=== PATIENT | female | born 1935 | race Caucasian/White ===

== ENCOUNTER 2016-08-31 14:18 | Inpatient (IN) | payer OTHER, MEDICAID ==
[~2016-08-31] VITALS: Ht 154.9 cm; Wt 67.6 kg
--- NOTE | 2016-08-31 14:37 | NUR ---
PT IS IN ROOM #1B. DR MIX EVALUATED THE PT.
[2016-08-31] MEDS ORDERED: CLOPIDOGREL 75 MG TABLET PO ONE (14:45)
[2016-08-31 14:51] LABS: BASOPHILS # (AUTO) 0.1 K/uL (0.0-8.0); EOSINOPHILS # (AUTO) 0.1 K/uL (0.0-0.7); EOSINOPHILS % (AUTO) 1.2 % (0.0-7.0); HEMATOCRIT 43.1 % (37-47); HEMOGLOBIN 14.4 G/DL (12.0-16.0); LYMPHOCYTES # (AUTO) 2.1 K/UL (0.8-4.8); LYMPHOCYTES % (AUTO) 28.3 % (20.5-51.5); MEAN CORPUSCULAR HEMOGLOBIN 28.7 UUG (27.0-31.0); MEAN CORPUSCULAR HGB CONC 33 g/dL (32.0-37.0); MEAN CORPUSCULAR VOLUME 86.1 FL (81.0-99.0); MONOCYTES # (AUTO) 0.5 K/UL (0.1-1.30); MONOCYTES % (AUTO) 7.2 % (0.0-11.0); NEUTROPHILS # (AUTO) 4.7 K/UL (1.8-8.9); NEUTROPHILS % (AUTO) 62.3 % (38.5-71.5); PLATELET COUNT (AUTO) 303 K/UL (150-450); RED BLOOD CELL COUNT(AUTO) 5.01 MIL/UL (4.2-5.4); WHITE BLOOD COUNT (AUTO) 7.5 K/UL (4.0-11.2)
[2016-08-31] MEDS ORDERED: CLOPIDOGREL 75 MG TABLET ONE (14:51)
[2016-08-31 15:02] LABS: CARBON DIOXIDE 24 mmol/L (21-32); CHLORIDE 103 mmol/L (98-107); CREATININE 0.7 mg/dL (0.6-1.3); GLUCOSE 123 mg/dL (74-106); POTASSIUM 4.3 mmol/L (3.5-5.1); UREA NITROGEN, BLOOD 21 mg/dL (7-18)
[2016-08-31 15:15] LABS: ALANINE AMINOTRANSFERASE 23 U/L (14-59); ALKALINE PHOSPHATASE 62 U/L (50-136); ASPARTATE AMINOTRANSFERASE 17 U/L (15-37); BILIRUBIN,DIRECT 0.1 mg/dL (0.0-0.2); BILIRUBIN,TOTAL 0.3 mg/dL (0.2-1.0); TOTAL PROTEIN, SERUM 6.7 g/dL (6.4-8.2)
[2016-08-31] MEDS ORDERED: MORPHINE SULFATE 2 MG/1 ML DISP.SYRIN IV PRN (16:30)
[2016-08-31] MEDS ORDERED: ONDANSETRON 4 MG/2 ML VIAL IV PRN (16:30)
[2016-08-31] MEDS ORDERED: ACETAMINOPHEN 325 MG TABLET PO PRN (16:30)
[2016-08-31 16:53] LABS: *BILIRUBIN,URIN NEGATIVE (NEGATIVE); *BLOOD, URINE 1+ (NEGATIVE); *CLARITY,URINE SLIGHTLY CLOUDY (CLEAR); *COLOR,URINE YELLOW (YELLOW); *KETONES,URINE NEGATIVE (NEGATIVE); *PROTEIN,URINE NEGATIVE (NEGATIVE); *UROBILINOGEN,URINE 0.2 E.U./dl (NORMAL); LEUKOCYTE ESTERASE ,URINE TRACE (NEGATIVE); NITRITE, URINE NEGATIVE (NEGATIVE); UGLUCOSE NEGATIVE (NEGATIVE)
[2016-08-31 17:04] LABS: BACTERIA,URINE NONE SEEN /HPF (NONE SEEN); SQUAMOUS EPITHELIAL CELL,UR FEW /HPF (NONE SEEN)
[2016-08-31] MEDS ORDERED: NITROGLYCERIN 0.4 MG/TAB BOTTLE SL PRN (17:30)
[2016-08-31] MEDS ORDERED: hydrALAZINE HCL 25 MG TABLET PO PRN (17:30)
[2016-08-31] MEDS ORDERED: MECLIZINE HCL 25 MG TABLET PO PRN (17:30)
--- NOTE | 2016-08-31 17:33 | NUR ---
REPORT WAS GIVEN TO APERTURE MASK ETCHER. PT WAS TRANSFERED TO TELEMETRY ROOM #209.
[2016-08-31 17:45] VITALS: BP 145/73
--- NOTE | 2016-08-31 17:45 | NUR ---
REPORT RECEIVED FROM ER. PT. ARRIVED ON FLOOR VIA [facility]. A/OX4. R/A. VSS. TELE APPLIED. PT. DENIES CP OR N/T, SOB. C/O OF DIZZINESS. AMBULATORY. VOIDED. TELE RYTHM SINUS ARRYTHMIA, BBB. PT. RESTING IN BED CURRENTLY. CONTINUE TO MONITOR.
[2016-08-31 18:00] VITALS: BP 155/84
[2016-08-31] MEDS ORDERED: MORPHINE SULFATE 4 MG/1 ML DISP.SYRIN IV PRN (18:00)
[2016-08-31] MEDS ORDERED: CEFTRIAXONE 1 G in IV DEXTROSE 5% 50 ML IV SCH (18:00)
[2016-08-31] MEDS: AMLODIPINE 5 MG TABLET PO SCH (18:41)
--- NOTE | 2016-08-31 19:30 | NUR ---
DAY SHIFT RN STATED THAT PATIENT REFUSED IV CEFTRIAXONE 1G SCHEDULED AT 1800.
[2016-08-31 19:39] VITALS: BP 142/86
--- NOTE | 2016-08-31 20:00 | NUR ---
PT REFUSED IV CEFTRIAXONE 1G SCHEDULED AT 1800. EXPLAINED RISKS/BENEFITS OF TAKING/NOT TAKING ANTIBIOTICS, MANAGER PROGRAM MANAGEMENT ALSO DISCUSSED WITH THE PATIENT BUT PATIENT STILL REFUSED.
[2016-09-01 04:00] VITALS: BP 143/77
--- NOTE | 2016-09-01 06:30 | NUR ---
PT SLEPT INTERMITTENTLY, IN NO ACUTE DISTRESS, NO C/O OF CHEST PAIN, SOB. PT IS ON TELE SINUS ARRYTHMIA, OCCASIONAL PVCs, LBBB. PT C/O OF DIZZINESS, DISCUSSED WITH PT REGARDING SAFETY MEASURES, TO USE CALL LIGHT WHEN ASSISTANCE IS NEEDED, PT VERBALIZED UNDERSTANDING. BED ALARM ON. WILL CONTINUE TO MONITOR.
[2016-09-01 07:00] LABS: BASOPHILS % (AUTO) 0.7 % (0.0-2.0); EOSINOPHILS # (AUTO) 0.2 K/uL (0.0-0.7); EOSINOPHILS % (AUTO) 2.5 % (0.0-7.0); HEMOGLOBIN 13.7 G/DL (12.0-16.0); LYMPHOCYTES # (AUTO) 2.5 K/UL (0.8-4.8); MEAN CORPUSCULAR HGB CONC 33 g/dL (32.0-37.0); MEAN CORPUSCULAR VOLUME 86.8 FL (81.0-99.0); MONOCYTES # (AUTO) 0.5 K/UL (0.1-1.30); MONOCYTES % (AUTO) 7.5 % (0.0-11.0); NEUTROPHILS # (AUTO) 3.1 K/UL (1.8-8.9); NEUTROPHILS % (AUTO) 49.3 % (38.5-71.5); PLATELET COUNT (AUTO) 263 K/UL (150-450); RED BLOOD CELL COUNT(AUTO) 4.72 MIL/UL (4.2-5.4); WHITE BLOOD COUNT (AUTO) 6.3 K/UL (4.0-11.2)
[2016-09-01] MEDS ORDERED: PANTOPRAZOLE SODIUM 40 MG TABLET.DR PO SCH (07:00)
--- NOTE | 2016-09-01 07:10 | NUR ---
RECEIVED REPORT FROM BALLET SOLOIST NURSE, PATIENT WALKING IN HALLWAYS, VERY ANXIOUS, HAS A LOT OF QUESTIONS AND CONCERNS ABOUT BREAKFAST AND DIET BEING GLUTEN FREE, AND LOW FAT PRESCRIPTION BY DOCTOR. PATIENT WAS WALKED BACK TO HER ROOM AND OFFERED A CUP OF TEA, PATIENT AGREED AND CALMED DOWN.
[2016-09-01 07:25] LABS: ALANINE AMINOTRANSFERASE 19 U/L (14-59); ALKALINE PHOSPHATASE 50 U/L (50-136); ASPARTATE AMINOTRANSFERASE 17 U/L (15-37); BILIRUBIN,TOTAL 0.6 mg/dL (0.2-1.0); CARBON DIOXIDE 28 mmol/L (21-32); CHLORIDE 105 mmol/L (98-107); CHOLESTEROL 164 mg/dL (<200); CREATININE 0.8 mg/dL (0.6-1.3); GLUCOSE 100 mg/dL (74-106); HDL CHOLESTEROL 75 mg/dL (40-60); MAGNESIUM 1.7 mg/dL (1.8-2.4); PHOSPHOROUS 3.7 mg/dL (2.5-4.9); POTASSIUM 4.1 mmol/L (3.5-5.1); TOTAL PROTEIN, SERUM 5.9 g/dL (6.4-8.2); TRIGLYCERIDES 76 MG/DL (30-150); UREA NITROGEN, BLOOD 17 mg/dL (7-18)
[2016-09-01 07:33] LABS: THYROID STIMULATING HORMONE 2.844 mIU/mL (0.358-3.740)
[2016-09-01] MEDS ORDERED: FAMO40TA7 PO (08:50)
[2016-09-01] MEDS ORDERED: DIVA125T2 PO (08:50)
[2016-09-01] MEDS ORDERED: URSO300C12 PO (08:50)
[2016-09-01] MEDS: AMLODIPINE 5 MG TABLET PO SCH (09:00)
[2016-09-01] MEDS ORDERED: CLOPIDOGREL 75 MG TABLET PO SCH (09:00)
[2016-09-01] MEDS ORDERED: MAGNESIUM SULFATE/D5W 100 ML IV SCH (09:45)
[2016-09-01 11:11] VITALS: BP 138/79
[2016-09-01] MEDS ORDERED: URSODIOL 300 MG CAPSULE PO SCH (13:30)
[2016-09-01] MEDS ORDERED: DIVALPROEX 125 MG TABLET.DR PO SCH (13:30)
[2016-09-01] MEDS ORDERED: MECL-102 PO (14:44)
[2016-09-01 15:13] VITALS: BP 130/76
[2016-09-01] MEDS ORDERED: MECLIZINE HCL 25 MG TABLET PO STA (15:36)
--- NOTE | 2016-09-01 15:46 | NUR ---
PATIENT BEING DISCHARGED TO HOME. [facility] REPAIRER NOTIFIED FOR THE NEED OF TRANSPORTATION. PATIENT WAS OFFERED A TOKEN FOR A BUS RIDE.
[2016-09-01] MEDS ORDERED: MECLIZINE HCL 25 MG TABLET PO PRN (16:15)
--- NOTE | 2016-09-01 16:52 | NUR ---
The patient will be discharged today back home [[address], [place] [address]] per Landy Cooper. She is in agreement with his discharge and requested for [facility] [ ] to pick her up. Called [facility] and spoke to Mckenna who arranged for the transportation and provided Reservation# [id number]. She recommended to call back to find the exact time. Called [facility] again and spoke to Brenda who stated that the patient will be picked up by [facility] and arranged for the time to be 5:45 p.m. Updated the patient and her RN, Martine.
== END 2016-09-01 18:45 | disposition home or self-care (01) | DRG 206 ==
LOC: ER 14:18 → TELE 17:28
PROVIDERS: ADMIT Internal Medicine; ATTEND Internal Medicine
DX: M94.0 Chondrocostal junction syndrome [Tietze] (principal); E44.0 Moderate protein-calorie malnutrition; I42.9 Cardiomyopathy, unspecified; E83.42 Hypomagnesemia; N39.0 Urinary tract infection, site not specified; I25.10 Atherosclerotic heart disease of native coronary artery without angina pectoris; I10 Essential (primary) hypertension; K80.80 Other cholelithiasis without obstruction; Z88.8 Allergy status to other drugs, medicaments and biological substances; I70.0 Atherosclerosis of aorta; I51.7 Cardiomegaly; I44.7 Left bundle-branch block, unspecified; Z79.899 Other long term (current) drug therapy; I77.819 Aortic ectasia, unspecified site; M19.90 Unspecified osteoarthritis, unspecified site; F41.9 Anxiety disorder, unspecified; R73.9 Hyperglycemia, unspecified; R42 Dizziness and giddiness
CPT/HCPCS: 36415; 70030-TC; 71010; 83735; 84100; 84443; 85025; 85730; 87086; 93005; 93307; 97161; J0696; J3475; J7040; J7060; J8597

== ENCOUNTER 2023-02-12 17:13 | Inpatient (IN) | payer MEDICARE, OTHER ==
[~2023-02-12] VITALS: Ht 152.4 cm; Wt 46.7 kg
[~2023-02-12 17:13] MED LIST: DIVA125T2 PO; FAMO40TA7 PO; MECL-159 PO; URSO300C12 PO
[2023-02-12 17:50] LABS: BASOPHILS % (AUTO) 0.5 % (0.0-2.0); EOSINOPHILS % (AUTO) 0.7 % (0.0-7.0); HEMATOCRIT 40.5 % (31.2-41.9); HEMOGLOBIN 13.6 g/dL (10.9-14.3); LYMPHOCYTES # (AUTO) 1.4 K/uL (0.8-4.8); LYMPHOCYTES % (AUTO) 19.9 % (20.5-51.5); MEAN CORPUSCULAR HEMOGLOBIN 29.4 uug (24.7-32.8); MEAN CORPUSCULAR HGB CONC 34 g/dL (32.3-35.6); MEAN CORPUSCULAR VOLUME 87.2 fL (75.5-95.3); MONOCYTES # (AUTO) 0.5 K/uL (0.1-1.30); MONOCYTES % (AUTO) 7.3 % (0.0-11.0); NEUTROPHILS # (AUTO) 5.2 K/uL (1.8-8.9); NEUTROPHILS % (AUTO) 71.6 % (38.5-71.5); PLATELET COUNT (AUTO) 285 K/uL (179-408); RED BLOOD CELL COUNT(AUTO) 4.65 MIL/uL (3.63-4.92); RED CELL DISTRIBUTION WIDTH 14.4 % (12.3-17.7); WHITE BLOOD COUNT (AUTO) 7.2 K/uL (3.8-11.8)
[2023-02-12 17:53] LABS: DIFFERENTIAL COMMENT 1
[2023-02-12 17:58] LABS: CARBON DIOXIDE 27 mmol/L (21-32); CHLORIDE 100 mmol/L (98-107); CREATININE 0.7 mg/dL (0.6-1.3); GLUCOSE 163 mg/dL (74-106); POTASSIUM 3.9 mmol/L (3.5-5.1); SODIUM SERUM 136 mmol/L (136-145); UREA NITROGEN, BLOOD 18 mg/dL (7-18)
[2023-02-12 18:03] LABS: ETHANOL < 3 MG/DL (0-10)
[2023-02-12 19:07] LABS: *BILIRUBIN,URIN NEGATIVE (NEGATIVE); *BLOOD, URINE 1+ (NEGATIVE); *CLARITY,URINE CLEAR (CLEAR); *COLOR,URINE YELLOW (YELLOW); *KETONES,URINE TRACE (NEGATIVE); *PROTEIN,URINE NEGATIVE (NEGATIVE); *UROBILINOGEN,URINE 0.2 E.U./dl (NORMAL); LEUKOCYTE ESTERASE ,URINE 1+ (NEGATIVE); NITRITE, URINE NEGATIVE (NEGATIVE); PH,URINE 6.5 (5.0-8.0); UGLUCOSE TRACE (NEGATIVE)
[2023-02-12 19:34] LABS: *AMPHETAMINE, URINE NEGATIVE (NEGATIVE); *BARBITURATE, URINE NEGATIVE (NEGATIVE); *BENZODIAZEPINE, URINE NEGATIVE (NEGATIVE); *CANNABINOID, URINE NEGATIVE (NEGATIVE); *COCCAINE, URINE NEGATIVE (NEGATIVE); *OPIATE, URINE NEGATIVE (NEGATIVE); *PHENCYCLIDINE SCREEN,URINE NEGATIVE (NEGATIVE); FENTANYL, URINE NEGATIVE (NEGATIVE)
[2023-02-12] MEDS ORDERED: LORAZEPAM 0.5 MG TABLET PO ONE (20:30)
[2023-02-12] MEDS ORDERED: LORAZEPAM 1 MG TABLET ONE (20:33)
[2023-02-12] MEDS ORDERED: HALOPERIDOL LACTATE 5 MG/1 ML VIAL ONE (20:36)
[2023-02-12] MEDS ORDERED: HALOPERIDOL LACTATE 5 MG/1 ML VIAL IM ONE (20:45)
[2023-02-12] MEDS ORDERED: ACETAMINOPHEN 325 MG TABLET PO PRN (22:00)
[2023-02-12] MEDS ORDERED: BLOOD SUGAR DIAGNOSTIC 1 EACH STRIP VI ONE (22:00)
[2023-02-12] MEDS ORDERED: MAGNESIUM HYDROXIDE 30 ML LIQUID UDC PO PRN (22:00)
[2023-02-12] MEDS ORDERED: MAG HYDROX/AL HYDROX/SIMETH 30 ML LIQUID UDC PO PRN (22:00)
[2023-02-12] MEDS: LORAZEPAM 0.5 MG TABLET PO PRN (22:21)
[2023-02-13] MEDS: TEMAZEPAM 7.5 MG CAPSULE PO PRN (00:53)
[2023-02-13] MEDS ORDERED: ASPI-866 PO (07:44)
[2023-02-13] MEDS ORDERED: RIVA20TA PO (07:44)
[2023-02-13] MEDS ORDERED: VITA-287 PO (07:44)
[2023-02-13] MEDS ORDERED: MELA3CAP2 PO (07:56)
[2023-02-13] MEDS ORDERED: ENZY1CAP5 PO (07:56)
[2023-02-13] MEDS ORDERED: SACU1TAB PO (07:56)
[2023-02-13] MEDS ORDERED: [UNRECOGNIZED DRUG - CODE] MC (07:56)
[2023-02-13] MEDS ORDERED: FURO-152 PO (07:56)
[2023-02-13] MEDS ORDERED: MULT-1119 PO (07:57)
[2023-02-13 08:01] VITALS: BP 129/70; TEMP 98; O2SAT 98
[2023-02-13] MEDS ORDERED: OMEG-49 PO (08:38)
[2023-02-13] MEDS ORDERED: MULT-213 PO (08:47)
[2023-02-13] MEDS ORDERED: UBID100C13 PO (08:51)
[2023-02-13] MEDS ORDERED: LACT1CAP57 PO (08:52)
[2023-02-13] MEDS: DIVALPROEX 125 MG TABLET.DR PO SCH ×2 (13:27→20:58)
[2023-02-13 15:32] VITALS: BP 134/64; TEMP 97.8; O2SAT 98
[2023-02-13] MEDS: RIVAROXABAN 10 MG TABLET PO SCH (17:50)
[2023-02-13 20:00] VITALS: BP 122/70; TEMP 97.7; O2SAT 97
[2023-02-14 08:11] VITALS: BP 133/55; TEMP 98.2; O2SAT 98
[2023-02-14] MEDS ORDERED: ASPIRIN EC 81 MG TABLET.DR PO SCH (09:00)
[2023-02-14] MEDS: DIVALPROEX 125 MG TABLET.DR PO SCH (09:00)
[2023-02-14] MEDS: SACUBITRIL/VALSARTAN 24 MG-26 TABLET PO SCH (09:40)
[2023-02-14] MEDS: FUROSEMIDE 20 MG TABLET PO SCH (09:40)
[2023-02-14] MEDS: ASPIRIN EC 81 MG TABLET.DR PO SCH (11:59)
[2023-02-14 15:38] VITALS: BP 109/62; TEMP 98.2; O2SAT 96
[2023-02-14] MEDS: RIVAROXABAN 10 MG TABLET PO SCH (18:12)
[2023-02-14 19:53] VITALS: BP 112/60; TEMP 98.1; O2SAT 96
[2023-02-14] MEDS: DIVALPROEX SPRINKLE 125 MG CAP.SPRINK PO SCH (20:41)
[2023-02-14] MEDS: TEMAZEPAM 7.5 MG CAPSULE PO PRN (23:46)
[2023-02-15 07:47] VITALS: BP 108/82; TEMP 98.2; O2SAT 96
[2023-02-15] MEDS: ASPIRIN EC 81 MG TABLET.DR PO SCH (08:56)
[2023-02-15] MEDS: DIVALPROEX SPRINKLE 125 MG CAP.SPRINK PO SCH ×2 (08:56→20:24)
[2023-02-15] MEDS: FUROSEMIDE 20 MG TABLET PO SCH (09:00)
[2023-02-15] MEDS: SACUBITRIL/VALSARTAN 24 MG-26 TABLET PO SCH (09:30)
[2023-02-15 15:06] VITALS: BP 117/83; TEMP 98; O2SAT 98
[2023-02-15] MEDS: RIVAROXABAN 10 MG TABLET PO SCH (17:09)
[2023-02-15 20:02] VITALS: BP 112/78; TEMP 98; O2SAT 96
[2023-02-16] MEDS: TEMAZEPAM 7.5 MG CAPSULE PO PRN ×2 (02:18→22:48)
[2023-02-16 08:40] VITALS: BP 116/64; TEMP 98; O2SAT 98
[2023-02-16] MEDS: ASPIRIN EC 81 MG TABLET.DR PO SCH (08:47)
[2023-02-16] MEDS: DIVALPROEX SPRINKLE 125 MG CAP.SPRINK PO SCH ×2 (08:47→20:27)
[2023-02-16] MEDS: SACUBITRIL/VALSARTAN 24 MG-26 TABLET PO SCH (08:48)
[2023-02-16] MEDS: GLUCERNA SHAKE 237 ML CAN PO SCH (08:51)
[2023-02-16] MEDS: FUROSEMIDE 20 MG TABLET PO SCH (08:52)
[2023-02-16 15:09] VITALS: BP 117/70; TEMP 97.4; O2SAT 97
[2023-02-16] MEDS ORDERED: HYDROCORTISONE 0.5% CREAM 28.35 GM TUBE TOP PRN (17:00)
[2023-02-16] MEDS: RIVAROXABAN 10 MG TABLET PO SCH (17:31)
[2023-02-16 20:22] VITALS: BP 122/66; TEMP 98.2; O2SAT 96
[2023-02-17] MEDS: FUROSEMIDE 20 MG TABLET PO SCH (09:10)
[2023-02-17] MEDS: DIVALPROEX SPRINKLE 125 MG CAP.SPRINK PO SCH ×2 (09:11→21:03)
[2023-02-17] MEDS: GLUCERNA SHAKE 237 ML CAN PO SCH (09:11)
[2023-02-17] MEDS: ASPIRIN EC 81 MG TABLET.DR PO SCH (09:11)
[2023-02-17] MEDS: SACUBITRIL/VALSARTAN 24 MG-26 TABLET PO SCH (09:13)
[2023-02-17 09:14] VITALS: BP 120/66; O2SAT 98
[2023-02-17] MEDS: ARIPIPRAZOLE 5 MG TABLET PO SCH (10:00)
[2023-02-17 16:14] VITALS: BP 129/78; TEMP 98.1; O2SAT 97
[2023-02-17] MEDS: RIVAROXABAN 10 MG TABLET PO SCH (17:35)
[2023-02-17 20:00] VITALS: BP 133/76; TEMP 98.5; O2SAT 98
[2023-02-17] MEDS: TEMAZEPAM 7.5 MG CAPSULE PO PRN (22:53)
[2023-02-18 08:11] VITALS: BP 118/74; TEMP 98.1; O2SAT 100
[2023-02-18] MEDS: ARIPIPRAZOLE 5 MG TABLET PO SCH (09:00)
[2023-02-18] MEDS: ASPIRIN EC 81 MG TABLET.DR PO SCH (09:15)
[2023-02-18] MEDS: FUROSEMIDE 20 MG TABLET PO SCH (09:15)
[2023-02-18] MEDS: DIVALPROEX SPRINKLE 125 MG CAP.SPRINK PO SCH ×2 (09:15→20:49)
[2023-02-18] MEDS: SACUBITRIL/VALSARTAN 24 MG-26 TABLET PO SCH (09:16)
[2023-02-18] MEDS: GLUCERNA SHAKE 237 ML CAN PO SCH (09:17)
[2023-02-18 16:45] VITALS: BP 149/74; TEMP 98; O2SAT 99
[2023-02-18] MEDS: RIVAROXABAN 10 MG TABLET PO SCH (18:12)
[2023-02-18 20:00] VITALS: BP 122/76; TEMP 97.7; O2SAT 99
[2023-02-19 07:48] VITALS: BP 116/65; TEMP 98.3; O2SAT 99
[2023-02-19] MEDS: FUROSEMIDE 20 MG TABLET PO SCH (08:53)
[2023-02-19] MEDS: ASPIRIN EC 81 MG TABLET.DR PO SCH (08:53)
[2023-02-19] MEDS: ARIPIPRAZOLE 5 MG TABLET PO SCH (08:53)
[2023-02-19] MEDS: DIVALPROEX SPRINKLE 125 MG CAP.SPRINK PO SCH ×2 (08:53→20:46)
[2023-02-19] MEDS: SACUBITRIL/VALSARTAN 24 MG-26 TABLET PO SCH (08:54)
[2023-02-19] MEDS: GLUCERNA SHAKE 237 ML CAN PO SCH (08:55)
[2023-02-19 16:10] VITALS: BP 100/68; TEMP 98.1; O2SAT 99
[2023-02-19] MEDS: RIVAROXABAN 10 MG TABLET PO SCH (17:45)
[2023-02-19 20:03] VITALS: BP 108/66; TEMP 98.1; O2SAT 98
[2023-02-20] MEDS: TEMAZEPAM 7.5 MG CAPSULE PO PRN (01:31)
[2023-02-20 08:00] VITALS: BP 135/78; TEMP 98; O2SAT 98
[2023-02-20] MEDS: DIVALPROEX SPRINKLE 125 MG CAP.SPRINK PO SCH ×3 (09:22→20:57)
[2023-02-20] MEDS: ASPIRIN EC 81 MG TABLET.DR PO SCH (09:22)
[2023-02-20] MEDS: FUROSEMIDE 20 MG TABLET PO SCH (09:22)
[2023-02-20] MEDS: GLUCERNA SHAKE 237 ML CAN PO SCH (09:22)
[2023-02-20] MEDS: SACUBITRIL/VALSARTAN 24 MG-26 TABLET PO SCH (09:22)
[2023-02-20 16:00] VITALS: BP 104/52; TEMP 98.4; O2SAT 99
[2023-02-20] MEDS: RIVAROXABAN 10 MG TABLET PO SCH (17:46)
[2023-02-20 19:37] VITALS: BP 100/55; TEMP 98.2; O2SAT 95
[2023-02-21] MEDS: TEMAZEPAM 7.5 MG CAPSULE PO PRN ×2 (01:09→23:06)
[2023-02-21 08:00] VITALS: BP 115/58; TEMP 98; O2SAT 100
[2023-02-21] MEDS: DIVALPROEX SPRINKLE 125 MG CAP.SPRINK PO SCH ×2 (09:03→20:30)
[2023-02-21] MEDS: ASPIRIN EC 81 MG TABLET.DR PO SCH (09:03)
[2023-02-21] MEDS: FUROSEMIDE 20 MG TABLET PO SCH (09:04)
[2023-02-21] MEDS: GLUCERNA SHAKE 237 ML CAN PO SCH (09:04)
[2023-02-21] MEDS: SACUBITRIL/VALSARTAN 24 MG-26 TABLET PO SCH (09:05)
[2023-02-21] MEDS: RIVAROXABAN 10 MG TABLET PO SCH (17:58)
[2023-02-21 20:54] VITALS: BP 113/65; TEMP 98.1; O2SAT 98
[2023-02-22 08:27] VITALS: BP 116/67; TEMP 98; O2SAT 97
[2023-02-22] MEDS: ASPIRIN EC 81 MG TABLET.DR PO SCH (08:29)
[2023-02-22] MEDS: DIVALPROEX SPRINKLE 125 MG CAP.SPRINK PO SCH (08:29)
[2023-02-22] MEDS: FUROSEMIDE 20 MG TABLET PO SCH (08:29)
[2023-02-22] MEDS: LORAZEPAM 0.5 MG TABLET PO PRN (08:29)
[2023-02-22] MEDS: SACUBITRIL/VALSARTAN 24 MG-26 TABLET PO SCH (08:30)
[2023-02-22] MEDS: GLUCERNA SHAKE 237 ML CAN PO SCH (08:50)
== END 2023-02-22 11:35 | DRG 885 ==
LOC: ER 17:17 → GPS 21:26
PROVIDERS: ADMIT Psychiatry & Neurology Psychosomatic Medicine; ATTEND Internal Medicine
DX: F31.9 Bipolar disorder, unspecified (principal); I11.0 Hypertensive heart disease with heart failure; K86.1 Other chronic pancreatitis; F60.3 Borderline personality disorder; I48.0 Paroxysmal atrial fibrillation; I25.10 Atherosclerotic heart disease of native coronary artery without angina pectoris; I50.9 Heart failure, unspecified; F41.9 Anxiety disorder, unspecified; E11.9 Type 2 diabetes mellitus without complications; Z87.891 Personal history of nicotine dependence; Z95.0 Presence of cardiac pacemaker; Z91.199 Patient's noncompliance with other medical treatment and regimen due to unspecified reason; Z91.81 History of falling; Z79.899 Other long term (current) drug therapy; Z88.8 Allergy status to other drugs, medicaments and biological substances; Z91.018 Allergy to other foods; Z91.51 Personal history of suicidal behavior; Z79.82 Long term (current) use of aspirin; Z79.01 Long term (current) use of anticoagulants
CPT/HCPCS: 36415; 71045; 84443; 85025; 93005; G0480; J1630